=== PATIENT | female | born 1995 | race Caucasian/White ===

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

== ENCOUNTER 2017-01-01 04:27 | Emergency (ER) | payer MEDICAID ==
[~2017-01-01] VITALS: Ht 162.6 cm; Wt 88.0 kg
[~2017-01-01 04:27] MED LIST changes: -ADV25050 INH; +ADV25050 INHALATION; -ALBU8.5H3 INH; +AZIT250T6 PO; -BECL8.7A INH; -IPRA14.76; -IPRA14.76 IH; -LEVO500T72 PO; -LEVO750T25 PO; -LORA-52; -LORA10TA PO; +MED4DP PO; -MONT10TA21; -PRED-253; -PRED10TA PO; -PRED20TA PO
[2017-01-01 04:30] VITALS: Ht 162.6 cm; Wt 88.0 kg
[2017-01-01] MEDS ORDERED: LEVALBUTEROL (NEB) 1.25 MG/0.5 ML AMP INH STA ×2 (04:39→05:50)
[2017-01-01] MEDS ORDERED: METHYLPREDNISOLONE 125 MG INJ IM STA (04:39)
[2017-01-01] MEDS ORDERED: IPRATROPIUM (NEB) 0.5 MG/2.5 ML AMP NEB STA (04:39)
--- NOTE | 2017-01-01 05:01 | ERD ---
ER Documentation Chief Complaint Date/Time DATE: 01/01/17 TIME: 04:58 Chief Complaint coughx 3 days, sob today, wheezing HPI 21-year-old female presents here in emergency department for complaints of cough shortness breath and wheezing for 3 days, worse today. Patient has history of asthma, has been taking albuterol at home with only mild relief. Patient does not have any sick contacts. Patient denies any fever or chills. ROS All systems reviewed and are negative except as per history of present illness. Medications Home Meds Active Scripts Mometasone-Formoterol (Dulera) 100-5 Mcg - 13 Gm Hfa.aer.ad, 2 PUFFS INHALATION BID, #1 INHALER Prov:ELY ZAYAS NP 01/01/17 Prednisone* (Prednisone*) 50 Mg Tablet, 50 MG PO DAILY, #5 TAB Prov:ELY ZAYAS NP 01/01/17 Albuterol Sulfate* (Proair HFA*) 8.5 Gm Hfa.aer.ad, 2 PUFF INH Q4H Y for WHEEZING AND SOB, #1 INHALER Prov:ELY ZAYAS NP 01/01/17 Cetirizine Hcl* (Zyrtec*) 10 Mg Capsule, 10 MG PO DAILY, #30 TAB.CHEW Prov:ELY ZAYAS NP 01/01/17 Pebftjougso-B-Qurlsdkxlj Hb* (Guaifenesin* DM Syrup) 120 Ml Syrup, 10 ML PO Q4H Y for COUGH, #120 ML Prov:ELY ZAYAS NP 01/01/17 Methylprednisolone* (Medrol* DOSE PACK) 4 Mg/Dose-Pack Tab.ds.pk, 4 MG PO . DIRECTED, #1 PACKET Prov:CARRIE RICHTER 11/20/16 Azithromycin* (Azithromycin*) 250 Mg Tablet, 250 MG PO DAILY, #4 TAB Prov:REGIDORCARRIE 11/20/16 Salmeterol Xinaf/Fluticasone* (Advair*) 250-50 Diskus Inhaler, 2 INH INHALATION BID, #1 INHALER Prov:REGCARRIE PRECIADO 11/20/16 Albuterol Sulfate* (Albuterol Sulfate* Neb) 0.083%-3 Ml Neb, 2.5 MG NEB Q4 Y for SHORTNESS OF BREATH, #30 EA Prov:REGIDORCARRIE 11/20/16 Albuterol Sulfate* (Ventolin HFA*) 18 Gm Hfa.aer.ad, 2 PUFF INHALATION Q4H Y for WHEEZING AND SOB, #1 INHALER Prov:REGIDORNEETUCARRIE 11/20/16 Montelukast Sodium* (Singulair*) 10 Mg Tablet, 10 MG PO QHS, #30 TAB Prov:REGIDORNEETUCARRIE 11/20/16 Sodium Chloride for Inhalation (Nebusal for Inhalation) 4 Ml Vial.neb, 4 ML INHALATION Q4 for SHORTNESS OF BREATH, #1 EA Prov:JITENDRA VALENCIA NP 07/20/16 Allergies Allergies: Coded Allergies: No Known Allergy (Unverified , 07/18/16) PMhx/Soc History of Surgery: Yes (asthma since 7 years old) Anesthesia Reaction: No Hx Neurological Disorder: Yes (migraine) Hx Respiratory Disorders: Yes (asthma) Hx Cardiac Disorders: No Hx Psychiatric Problems: No Hx Miscellaneous Medical Probl: No Hx Alcohol Use: No Hx Substance Use: No Hx Tobacco Use: No Smoking Status: Never smoker FmHx Family History: No coronary disease, No diabetes, No other Physical Exam Vitals Vital Signs Date Time Temp Pulse Resp B/P Pulse Ox O2 Delivery O2 Flow Rate FiO2 01/01/17 07:06 126 127/66 100 01/01/17 06:10 103 26 95 21 01/01/17 04:50 117 32 93 21 01/01/17 04:30 97.8 124 20 138/72 97 Physical Exam GENERAL: The patient is well developed and appropriate for usual state of health, in no apparent distress. CHEST: Diffuse wheezing noted bilaterally. There are no rales, crackles or rhonchi. HEART: Regular rate and rhythm. No murmurs, clicks, rubs or gallops. No S3 or S4. ABDOMEN: Soft, nontender and nondistended. Good bowel sounds. No rebound or guarding. No gross peritonitis. No gross organomegaly or masses. No Ward sign or McBurney point tenderness. BACK: No midline or flank tenderness. EXTREMITIES: Equal pulses bilaterally. There is no peripheral clubbing, cyanosis or edema. No focal swelling or erythema. Full range of motion. Grossly neurovascularly intact. NEURO: Alert and oriented. Cranial nerves 2-12 intact. Motor strength in all 4 extremities with 5/5 strength. Sensation grossly intact. Normal speech and gait. SKIN: There is no apparent rash or petechia. The skin is warm and dry. HEMATOLOGIC AND LYMPHATIC: There is no evidence of excessive bruising or lymphedema. No gross cervical, axillary, or inguinal lymphadenopathy. Results 24 hrs Current Medications Medications (Trade) Dose Ordered Sig/Brady Route PRN Reason Start Time Stop Time Status Last Admin Dose Admin Ipratropium [place] (Atrovent 0.02% (Neb)) 1 mg ONCE STAT NEB 01/01/17 04:39 01/01/17 04:40 DC 01/01/17 04:50 Levalbuterol (Xopenex Neb) 5 mg ONCE STAT INH 01/01/17 04:39 01/01/17 04:40 DC 01/01/17 04:50 Methylprednisolone Sodium Succinate (Solu-Medrol) 125 mg ONCE STAT IM 01/01/17 04:39 01/01/17 04:40 DC 01/01/17 05:01 Levalbuterol (Xopenex Neb) 5 mg ONCE STAT INH 01/01/17 05:50 01/01/17 05:51 DC 01/01/17 06:11 Breathing treatment of Xopenex and Atrovent Solu Medrol IM was given here in emergency department, after treatment, patient's lungs sounds are clear and patient's oxygenation is better. Patient verbalized feeling much better. Procedures/MDM Medical Decision Making: Patient symptoms are most likely consistent with acute bronchitis w/ acute asthma exacerbation, which viral in origin. There is low suspicion for Pneumonia at this time since patients lungs sounds are clear , patient O2 saturation is normal and patient doesnt show any respiratory distress. Patients chest xray doesnt show infiltrates or any other cardiopulmonary emergencies at this time. There is low suspicion for other cardiopulmonary emergencies at this time such as CHF, Pulmonary Embolism, Pneumothorax, Aortic Aneurysm or any other cardiopulmonary emergencies at this time. There is low suspicion for sepsis. Patient appears well and is hemodynamically stable. Disposition: Home. Condition: Stable Prescriptions: ProAir, Prednisone, Dulera, Guaifenasin DM Instructions: Patient is advised to take medications as prescribed. Patient is advised to rest. Patient advised to increase fluid intake, do humidifier at home and if possible, do salt water gargles. Patient is advised that if symptoms are worse, shortness of breath, uncontrolled fever, stridor, vomiting, worst signs and symptoms to return to emergency department immediately. Otherwise, patient is advised to follow up with primary doctor in 5-7 days. Disclaimer: Inadvertent spelling and grammatical errors are likely due to EHR/ dictation software use and do not reflect on the overall quality of patient care. Also, please note that the electronic time recorded on this note does not necessarily reflect the actual time of the patient encounter. Departure Diagnosis: Primary Impression: Acute bronchitis Bronchitis organism: unspecified organism Qualified Code: J20.9 - Acute bronchitis, unspecified organism Additional Impression: Acute asthma exacerbation Asthma severity: unspecified severity Qualified Code: J45.901 - Asthma with acute exacerbation, unspecified asthma severity Condition: Stable Patient Instructions: Bronchitis With Wheezing (Adult) Additional Instructions: Patient is advised to take medications as prescribed. Patient is advised to rest. Patient advised to increase fluid intake, do humidifier at home and if possible, do salt water gargles. Patient is advised that if symptoms are worse, shortness of breath, uncontrolled fever, stridor, vomiting, worst signs and symptoms to return to emergency department immediately. Otherwise, patient is advised to follow up with primary doctor in 5-7 days. ELY ZAYAS NP Jan 01, 2017 05:01
[2017-01-01] MEDS ORDERED: GUAI120S26 PO (05:54)
[2017-01-01] MEDS ORDERED: PRED50TA PO (05:54)
[2017-01-01] MEDS ORDERED: MOME13HF2 INHALATION (05:54)
[2017-01-01] MEDS ORDERED: CETI10CA PO (05:54)
[2017-01-01] MEDS ORDERED: ALBU8.5H3 INH (05:54)
--- NOTE | 2017-01-01 06:10 | RADRPT ---
PROCEDURE: XR Chest. CLINICAL INDICATION: Asthma exacerbation TECHNIQUE: AP Portable chest. COMPARISON: 11/19/2016 FINDINGS: The cardiomediastinal silhouette is normal. The aorta is normal. No focal consolidation, pleural eff usion or pneumothorax is seen. The osseous structures are intact. IMPRESSION: No radiographic evidence of acute cardiopulmonary disease. Physician Kelley Date Time Electronically viewed and signed by Hussein Florez Physician on 01/01/2017 06:10 CS/
[2017-01-01 07:06] VITALS: BP 127/66; PULSE 126
== END 2017-01-01 07:43 | disposition home or self-care (01) ==
LOC: FTE 04:27
DX: J20.9 Acute bronchitis, unspecified (principal); J45.901 Unspecified asthma with (acute) exacerbation
CPT/HCPCS: 71010; 94644; 94645; 96372; J2930; Z7502; Z7610

== ENCOUNTER 2017-04-17 01:18 | Emergency (ER) | END 2017-04-17 04:52 | disposition home or self-care (01) ==

== ENCOUNTER 2017-11-25 08:07 | Emergency (ER) | END 2017-11-25 11:21 | disposition home or self-care (01) ==

== ENCOUNTER 2018-01-29 12:34 | Emergency (ER) | END 2018-01-29 16:25 | disposition home or self-care (01) ==

== ENCOUNTER 2018-02-19 10:10 | Emergency (ER) | END 2018-02-19 13:03 | disposition home or self-care (01) ==

== ENCOUNTER 2018-03-03 15:58 | Emergency (ER) | END 2018-03-03 19:27 | disposition home or self-care (01) ==

== ENCOUNTER 2018-05-30 09:13 | Inpatient (IN) | payer SELFPAY ==
[~2018-05-30] VITALS: Ht 157.5 cm; Wt 94.2 kg
[~2018-05-30 09:13] MED LIST changes: +ALBU8.5H8 INH; +AZIT250T PO; +AZIT250T13 PO; -AZIT250T6 PO; +CETI10CA PO; +GUAI120S26 PO; +IBUP-1542 PO; +LORA-186 PO; +MOME13HF2 INHALATION; +PRED20TA PO; +PRED50TA PO
[2018-05-30] MEDS ORDERED: ALBUTEROL 0.5% (NEB) 2.5 MG/0.5 ML AMP INH STA (09:19)
[2018-05-30] MEDS ORDERED: IPRATROPIUM (NEB) 0.5 MG/2.5 ML AMP INH STA (09:19)
[2018-05-30] MEDS ORDERED: SOD CHLORIDE 0.9% 1,000 ML IV STA (09:19)
[2018-05-30] MEDS ORDERED: METHYLPREDNISOLONE 125 MG INJ IV STA (09:19)
--- NOTE | 2018-05-30 09:39 | ERD ---
ER Documentation Chief Complaint Chief Complaint BIB [facility] FOR EVAL OF SOB HX OF ASTHMA. BREATHING TX BY EMS HPI 23-year-old woman brought in by EMS for shortness of breath and wheezing, she does have a history of asthma and has been using albuterol for the last few days without relief. She states she noticed the fever today, she has had a cough, sore throat, and congestion. Patient denies body aches, no recent travel or antibiotic use, no rash, no chest pain, no abdominal pain. Patient transported here on high flow oxygen and albuterol ROS All systems reviewed and are negative except as per history of present illness. Medications Home Meds Reported Medications Albuterol Sulfate* (Albuterol Sulfate* Neb) 0.083%-3 Ml Neb, 2.5 MG NEB Q4H PRN for WHEEZING AND SOB, #30 VIAL 05/30/18 Discontinued Scripts Prednisone* (Prednisone*) 50 Mg Tablet, 50 MG PO DAILY, #4 TAB Prov:SHANE DEL ANGEL PA-C 03/03/18 Albuterol Sulfate* (Proair HFA*) 8.5 Gm Hfa.aer.ad, 2 PUFF INH Q4, #1 INHALER Prov:SHANE DEL ANGEL PA-C 03/03/18 Albuterol Sulfate* (Albuterol Sulfate* Neb) 0.083%-3 Ml Neb, 2.5 MG NEB Q4 PRN for SHORTNESS OF BREATH, #30 EA Prov:SARAHY MUNOZ PA-C 02/19/18 Albuterol Sulfate* (Ventolin HFA*) 18 Gm Hfa.aer.ad, 2 PUFF INHALATION Q4H, #1 INHALER Prov:SARAHY MUNOZ PA-C 02/19/18 Albuterol Sulfate* (Proair HFA*) 8.5 Gm Hfa.aer.ad, 2 PUFF INH Q4, #1 INHALER Prov:JOSHUA ARTEAGA PA-C 01/29/18 Prednisone* (Prednisone*) 20 Mg Tab, 40 MG PO DAILY for 4 Days, TAB Prov:JOSHUA ARTEAGA PA-C 01/29/18 Salmeterol Xinaf/Fluticasone* (Advair*) 250-50 Diskus Inhaler, 1 INH INHALATION BID, #1 INHALER Prov:BRICE RUFFIN 12/09/17 Montelukast Sodium* (Singulair*) 10 Mg Tablet, 10 MG PO QHS, #30 TAB Prov:LALY,BRICE 12/09/17 Loratadine* (Claritin*) 10 Mg Tablet, 10 MG PO DAILY, #30 TAB Prov:LALY,BRICE 12/09/17 Albuterol Sulfate* (Albuterol Sulfate* Neb) 0.083%-3 Ml Neb, 2.5 MG NEB Q4 PRN for SHORTNESS OF BREATH, #30 EA Prov:LALY,BRICE 12/09/17 Prednisone* (Prednisone*) 20 Mg Tab, 40 MG PO DAILY for 4 Days, TAB Prov:LALY,BRICE 12/09/17 Prednisone* (Prednisone*) 20 Mg Tab, 40 MG PO DAILY for 4 Days, TAB Prov:KHUSHBU SNELL MD 11/25/17 Albuterol Sulfate* (Proair HFA*) 8.5 Gm Hfa.aer.ad, 2 PUFF INH Q4, #1 INHALER Prov:KHUSHBU SNELL MD 11/25/17 Azithromycin* (Zithromax*) 250 Mg Tablet, 250 MG PO .ZPACK DIRECTED, #6 TAB TAKE 500 MG (2 TABS) THE FIRST DAY THEN 250 MG (1 TAB) DAYS 2-5 Prov:KHUSHBU SNELL MD 11/25/17 Prednisone* (Prednisone*) 50 Mg Tablet, 50 MG PO DAILY for 5 Days, TAB Prov:ELY ZAYAS NP 04/17/17 Ibuprofen* (Motrin*) 600 Mg Tab, 600 MG PO Q6H PRN for PAIN AND OR ELEVATED TEMP, #30 TAB Prov:ELY ZAYAS NP 04/17/17 Cetirizine Hcl* (Zyrtec*) 10 Mg Capsule, 10 MG PO DAILY, #30 TAB.CHEW Prov:ELY ZAYAS NP 04/17/17 Eurvkkhnmzj-D-Vqydjfrxot Hb* (Guaifenesin* DM Syrup) 120 Ml Syrup, 10 ML PO Q4H PRN for COUGH, #120 ML Prov:ELY ZAYAS NP 04/17/17 Albuterol Sulfate* (Proair HFA*) 8.5 Gm Hfa.aer.ad, 2 PUFF INH Q4H PRN for WHEEZING AND SOB, #1 INHALER Prov:ELY ZAYAS NP 04/17/17 Mometasone-Formoterol (Dulera) 100-5 Mcg - 13 Gm Hfa.aer.ad, 2 PUFFS INHALATION BID, #1 INHALER Prov:ELY ZAYAS [employer]ING [employer] SUPERVISOR 01/01/17 Prednisone* (Prednisone*) 50 Mg Tablet, 50 MG PO DAILY, #5 TAB Prov:ELY ZAYAS NP 01/01/17 Albuterol Sulfate* (Proair HFA*) 8.5 Gm Hfa.aer.ad, 2 PUFF INH Q4H PRN for WHEEZING AND SOB, #1 INHALER Prov:EYL ZAYAS NP 01/01/17 Cetirizine Hcl* (Zyrtec*) 10 Mg Capsule, 10 MG PO DAILY, #30 TAB.CHEW Prov:ELY ZAYAS NP 01/01/17 Cpjtesatazf-Q-Ydqknyahpj Hb* (Guaifenesin* DM Syrup) 120 Ml Syrup, 10 ML PO Q4H PRN for COUGH, #120 ML Prov:ELY ZAYAS NP 01/01/17 Methylprednisolone* (Medrol* DOSE PACK) 4 Mg/Dose-Pack Tab.ds.pk, 4 MG PO . DIRECTED, #1 PACKET Prov:CARRIE RICHTER 11/20/16 Azithromycin* (Azithromycin*) 250 Mg Tablet, 250 MG PO DAILY, #4 TAB Prov:CARRIE RICHTER 11/20/16 Salmeterol Xinaf/Fluticasone* (Advair*) 250-50 Diskus Inhaler, 2 INH INHALATION BID, #1 INHALER Prov:CARRIE RICHTER 11/20/16 Albuterol Sulfate* (Albuterol Sulfate* Neb) 0.083%-3 Ml Neb, 2.5 MG NEB Q4 PRN for SHORTNESS OF BREATH, #30 EA Prov:CARRIE RICHTER 11/20/16 Albuterol Sulfate* (Ventolin HFA*) 18 Gm Hfa.aer.ad, 2 PUFF INHALATION Q4H PRN for WHEEZING AND SOB, #1 INHALER Prov:CARRIE RICHTER 11/20/16 Montelukast Sodium* (Singulair*) 10 Mg Tablet, 10 MG PO QHS, #30 TAB Prov:CARRIE RICHTER 11/20/16 Sodium Chloride for Inhalation (Nebusal for Inhalation) 4 Ml Vial.neb, 4 ML INHALATION Q4 for SHORTNESS OF BREATH, #1 EA Prov:JITENDRA VALENCIA P[employer]ING [employer] SUPERVISOR 07/20/16 Allergies Allergies: Coded Allergies: No Known Allergy (Unverified , 05/30/18) PMhx/Soc Asthma History of Surgery: No Anesthesia Reaction: No Hx Neurological Disorder: Yes (migraine) Hx Respiratory Disorders: Yes (asthma) Hx Cardiac Disorders: No Hx Psychiatric Problems: No Hx Miscellaneous Medical Probl: No Hx Alcohol Use: No Hx Substance Use: No Hx Tobacco Use: No Smoking Status: Never smoker FmHx Family History: No diabetes Physical Exam Vitals Vital Signs Date Temp Pulse Resp B/P (MAP) Pulse Ox O2 O2 Flow FiO2 Time Delivery Rate 05/30/18 126 18 137/78 94 Nasal 12:29 (97) Cannula 05/30/18 130 19 96 Nasal 2.0 09:33 Cannula 05/30/18 2.0 09:33 05/30/18 Nasal 2 09:22 Cannula 05/30/18 Nasal 2.0 09:17 Cannula 05/30/18 101.4 145 22 130/76 97 09:15 (94) Physical Exam GENERAL: Well-developed, well-nourished, dyspneic, febrile HEENT: Moist mucous membranes, pink conjunctiva, no cervical spine tenderness or step-off deformities, no goiter, no jaundice or icterus, extraocular movements intact without pain. No submandibular induration, and no pharyngeal erythema NEURO: Alert and oriented 3, cranial nerves II through XII intact bilaterally, pupils equal round reactive to light, no focal deficits or facial asymmetry, se nsation intact distally Strength 5/5 in upper and lower extremities bilaterally CARDIAC: Tachycardic and regular, no murmurs rubs or gallops LUNGS: Tachypnea, wheezing, no crackles or stridor SKIN: Warm and dry to touch, no abrasions, contusions, or hematomas, no lacerations, no ecchymosis, no target lesions, and without ulcers EXTREMITIES: No clubbing cyanosis or edema, calves are bilaterally symmetrical, no Homans sign, no popliteal cord sign. Distal pulses equal and bilateral PSYCH: Normal affect without agitation or irritability Result Diagram: 05/30/1848 05/30/18 0948 Results 24 hrs Laboratory Tests Test 05/30/18 09:48 05/30/18 11:30 05/30/18 11:40 White Blood Count 15.9 10^3/ul Red Blood Count 4.97 10^6/ul Hemoglobin 12.6 g/dl Hematocrit 39.3 % Mean Corpuscular Volume 79.1 fl Mean Corpuscular Hemoglobin 25.4 pg Mean Corpuscular 32.1 g/dl Hemoglobin Concent Red Cell Distribution Width 15.4 % Platelet Count 344 10^3/UL Mean Platelet Volume 8.6 fl Immature Granulocytes % 0.600 % Neutrophils % 75.5 % Lymphocytes % 15.4 % Monocytes % 6.4 % Eosinophils % 1.7 % Basophils % 0.4 % Nucleated Red Blood Cells % 0.0 /100WBC Immature Granulocytes # 0.100 10^3/ul Neutrophils # 12.0 10^3/ul Lymphocytes # 2.5 10^3/ul Monocytes # 1.0 10^3/ul Eosinophils # 0.3 10^3/ul Basophils # 0.1 10^3/ul Nucleated Red Blood Cells # 0.0 10^3/ul Sodium Level 143 mmol/L Potassium Level 3.7 mmol/L Chloride Level 105 mmol/L Carbon Dioxide Level 23 mmol/L Anion Gap 15 Blood Urea Nitrogen 8 mg/dl Creatinine 0.61 mg/dl Est Glomerular Filtrat > 60 mL/min Rate mL/min Glucose Level 119 mg/dl Calcium Level 9.4 mg/dl Total Bilirubin 0.3 mg/dl Direct Bilirubin 0.00 mg/dl Indirect Bilirubin 0.3 mg/dl Aspartate Amino 21 IU/L Transf (AST/SGOT) Alanine 17 IU/L Aminotransferase (ALT/SGPT) Alkaline Phosphatase 82 IU/L Troponin I < 0.012 ng/ml Total Protein 8.0 g/dl Albumin 4.8 g/dl Globulin 3.20 g/dl Albumin/Globulin Ratio 1.50 Lipase 58 U/L Urine Color YELLOW Urine Clarity CLOUDY Urine pH 6.0 Urine Specific [place] 1.030 Urine Ketones 2+ mg/dL Urine Nitrite NEGATIVE mg/dL Urine Bilirubin NEGATIVE mg/dL Urine Urobilinogen NEGATIVE mg/dL Urine Leukocyte Esterase TRACE Effie/ul Urine Microscopic RBC 6 /HPF Urine Microscopic WBC 10 /HPF Urine Squamous Epithelial Cells MODERATE /HPF Urine Bacteria FEW /HPF Urine Mucus MANY /HPF Urine Hemoglobin NEGATIVE mg/dL Urine Glucose NEGATIVE mg/dL Urine Total Protein 1+ mg/dl Urine Test NEGATIVE POC Beta HCG, Qualitative NEGATIVE Current Medications Medications Dose Sig/Brady Start Time Status Last (Trade) Ordered Route PRN Stop Time Admin Dose Reason Admin Albuterol 10 mg ONCE STAT 05/30/18 DC 05/30/18 (Proventil INH 09: 09:32 0.5% (Neb)) 05/30/18 09:22 Ipratropium 1 mg ONCE STAT 05/30/18 DC 05/30/18 [place] INH : 09:32 (Atrovent 05/30/18 09:22 0.02% (Neb)) 125 mg ONCE STAT 05/30/18 DC 05/30/18 Methylprednis IV 09:19 09:25 olone Sodium 05/30/18 09:22 Succinate (Solu-Medrol) Sodium 1,000 ml @ Q1H STAT 05/30/18 DC 05/30/18 Chloride 1,000 mls/hr IV 09:19 09:25 05/30/18 10:18 Magnesium 50 ml @ 25 ONCE ONCE 05/30/18 DC 05/30/18 Sulfate mls/hr IVPB 10:00 09:49 05/30/18 11:59 Procedures/MDM IV line was established patient was placed on quality assurance monitor chassis rhythm strip revealed a sinus tachycardia at 141 bpm with upright P and T waves. Patient was febrile. I do not think she has sepsis and suspect her tachycardia is due to the overall dehydration and albuterol that she has been receiving prior to arrival. EKG performed, read by me revealed a sinus tachycardia at 142 bpm, normal axis, narrow QRS complex, no concerning ST elevations or depressions noted, prolonged QT of 541 ms Chest X-ray 1V Interpreted by me: Soft Tissue: No acute abnormalities Bones: No acute abnormalities Mediastinum/Cardiac Silhouette/Lungs: No acute abnormalities I administered 1 L normal saline IV, albuterol 10 mg via nebulizer, ipratropium 1 mg via nebulizer, methylprednisolone 125 mg IV x1. I also administered magnesium 2 g IV x1. Repeat EKG revealed a sinus tachycardia at 130 bpm with prolonged QT of 579 ms essentially unchanged EKG. CBC reveals a leukocytosis of 16, electrolytes are normal, liver function tests normal, troponin negative, urinalysis reveals leukocytes and elevated urine WBCs so I treated her here with ceftriaxone 1 g IV. Influenza swabs were negative Patient has continued dyspnea and wheezing despite above management, she will be admitted for continued bronchodilator therapy Departure Diagnosis: Primary Impression: Asthma Asthma severity: moderate Asthma persistence: persistent Asthma complication type: with acute exacerbation Qualified Codes: J45.41 - Moderate persistent asthma with (acute) exacerbation Additional Impressions: Acute URI Acute UTI Condition: GUY Akbar MD May 30, 2018 09:39
[2018-05-30] MEDS ORDERED: MAGNESIUM SULFATE 2 GM/50 ML 50 ML IVPB ONE (10:00)
[2018-05-30] MEDS ORDERED: ALBU2.5V3 NEB (10:38)
[2018-05-30] MEDS ORDERED: CEFTRIAXONE 1 GM/50 ML (PMX) 50 ML IVPB ONE (13:00)
[2018-05-30 14:13] VITALS: BP 125/68; PULSE 119; RESP 18
[2018-05-30 14:41] VITALS: PULSE 102
[2018-05-30 14:47] VITALS: Ht 157.5 cm; Wt 94.2 kg
[2018-05-30] MEDS ORDERED: ACETAMINOPHEN 325 MG TAB PO PRN (15:30)
[2018-05-30] MEDS: ALBUTEROL 0.083% (NEB) 2.5 MG/3 ML AMP HHN SCH ×3 (15:30→19:49)
[2018-05-30] MEDS ORDERED: ONDANSETRON 4 MG INJ IV PRN (15:30)
--- NOTE | 2018-05-30 15:56 | HP ---
DATE OF ADMISSION: 05/30/2018 PRESENTING COMPLAINT: Shortness of breath and wheezing. HISTORY OF PRESENTING COMPLAINT: Lucia is a 23-year-old female who has been asthmatic since she was 7 and has been hospitalized a few times with acute asthma exacerbation. Over the last few days, she has been having mild shortness of breath, sore throat, cough, congestion, but today she was out with her family when she suddenly developed severe chest discomfort more like a tightness and inability to breathe. She tried to use her home albuterol with no relief and her family called 911 to bring her to the emergency room. At this time, she is improved after breathing treatments and intravenous Solu-Medrol as well as magnesium therapy. However, she continues to wheeze and still has some shortness of breath and so she is being admitted for further management. PAST MEDICAL HISTORY: Positive for asthma and migraines. PAST SURGICAL HISTORY: The patient denies. ALLERGIES: SHE HAS NO KNOWN DRUG ALLERGIES. SOCIAL HISTORY: Denies tobacco, alcohol or illicit drugs. FAMILY HISTORY: Positive for hypertension. REVIEW OF SYSTEMS: A 12-point review of system was done and pertinent findings as noted in the HPI. PHYSICAL EXAMINATION: VITAL SIGNS: Temperature 98.9, pulse is 102, respirations 18, blood pressure 135/68, saturations 92% on oxygen via nasal cannula at 2 liters a minute. GENERAL: Very sick, obese. She is alert. She is oriented. She is speaking in full sentences. HEENT: Head is normocephalic with equal, round and reactive pupils. Mucous membranes are moist. Posterior pharynx is clear of erythema and exudate. NECK: Supple without adenopathy. CHEST: Still with diminished breath sounds bilaterally and expiratory wheezes especially in the bases on both sides. CARDIOVASCULAR: Heart sounds are S1 and S2 without added sounds or murmurs. She is tachycardic likely from albuterol use. ABDOMEN: Obese, soft, nontender, nondistended. Normoactive bowel sounds. EXTREMITIES: There is no lower extremity edema. SKIN: Devoid of rash or jaundice. LABORATORY VALUES: CMP is unremarkable. CBC does show a leukocytosis of 15,000 and mild hypochromasia. Urinalysis is suggestive of urinary tract infection, but the patient is asymptomatic. ASSESSMENT: A 23-year-old female with: 1. Acute asthma exacerbation. 2. Reactive leukocytosis. 3. Upper respiratory infection, likely viral that she got the asthma exacerbation. PLAN: Admit her for continued scheduled bronchodilator therapy. She is status post 1 dose of intravenous steroids as well as 1 dose of IV antibiotic in the ER and she also received magnesium infusion. So for now, I am going to just continue with scheduled breathing treatments and see how she does. If necessary, we will resume steroids but I do not think that is indicated at this time. Further interventions will depend on her overall clinical course. Plan of care has been discussed with her in detail. Questions have been answered. Dictated By: LAVELLE URIOSTEGUI MD BA/NTS Conf#: [id number] DID#: [id number] MTDD
[2018-05-30 20:17] VITALS: BP 137/70; PULSE 110; RESP 17
[2018-05-30 20:30] VITALS: PULSE 89
[2018-05-31] MEDS: ALBUTEROL 0.083% (NEB) 2.5 MG/3 ML AMP HHN SCH ×4 (00:20→13:02)
[2018-05-31 02:05] VITALS: BP 106/56; PULSE 97; RESP 16
[2018-05-31 02:30] VITALS: PULSE 85
[2018-05-31 07:50] VITALS: BP 115/62; PULSE 67; RESP 18
--- NOTE | 2018-05-31 12:53 | DS ---
Date/Time of Note Date/Time of Note DATE: 05/31/18 TIME: 12:53 Discharge Summary Admission/Discharge Info Admit Date/Time May 30, 2018 at 11:09 Discharge Date/Time Patient Condition: Stable Home Meds Reported Medications Albuterol Sulfate* (Albuterol Sulfate* Neb) 0.083%-3 Ml Neb, 2.5 MG NEB Q4H PRN for WHEEZING AND SOB, #30 VIAL 05/30/18 Discontinued Scripts Prednisone* (Prednisone*) 50 Mg Tablet, 50 MG PO DAILY, #4 TAB Prov:SHANE DEL ANGEL PA-C 03/03/18 Albuterol Sulfate* (Proair HFA*) 8.5 Gm Hfa.aer.ad, 2 PUFF INH Q4, #1 INHALER Prov:SHANE DEL ANGEL PA-C 03/03/18 Albuterol Sulfate* (Albuterol Sulfate* Neb) 0.083%-3 Ml Neb, 2.5 MG NEB Q4 PRN for SHORTNESS OF BREATH, #30 EA Prov:SARAHY MUNOZ PA-C 02/19/18 Albuterol Sulfate* (Ventolin HFA*) 18 Gm Hfa.aer.ad, 2 PUFF INHALATION Q4H, #1 INHALER Prov:SARAHY MUNOZ PA-C 02/19/18 Albuterol Sulfate* (Proair HFA*) 8.5 Gm Hfa.aer.ad, 2 PUFF INH Q4, #1 INHALER Prov:JOSHUA ARTEAGA PA-C 01/29/18 Prednisone* (Prednisone*) 20 Mg Tab, 40 MG PO DAILY for 4 Days, TAB Prov:JOSHUA ARTEAGA PA-C 01/29/18 Salmeterol Xinaf/Fluticasone* (Advair*) 250-50 Diskus Inhaler, 1 INH INHALATION BID, #1 INHALER Prov:LALY,BRICE 12/09/17 Montelukast Sodium* (Singulair*) 10 Mg Tablet, 10 MG PO QHS, #30 TAB Prov:LALY,BRICE 12/09/17 Loratadine* (Claritin*) 10 Mg Tablet, 10 MG PO DAILY, #30 TAB Prov:LALY,BRICE 12/09/17 Albuterol Sulfate* (Albuterol Sulfate* Neb) 0.083%-3 Ml Neb, 2.5 MG NEB Q4 PRN for SHORTNESS OF BREATH, #30 EA Prov:LALY,BRICE 12/09/17 Prednisone* (Prednisone*) 20 Mg Tab, 40 MG PO DAILY for 4 Days, TAB Prov:LALY,BRICE 12/09/17 Prednisone* (Prednisone*) 20 Mg Tab, 40 MG PO DAILY for 4 Days, TAB Prov:KHUSHBU SNELL MD 11/25/17 Albuterol Sulfate* (Proair HFA*) 8.5 Gm Hfa.aer.ad, 2 PUFF INH Q4, #1 INHALER Prov:KHUSHBU SNELL MD 11/25/17 Azithromycin* (Zithromax*) 250 Mg Tablet, 250 MG PO .ZPACK DIRECTED, #6 TAB TAKE 500 MG (2 TABS) THE FIRST DAY THEN 250 MG (1 TAB) DAYS 2-5 Prov:KHUSHBU SNELL MD 11/25/17 Prednisone* (Prednisone*) 50 Mg Tablet, 50 MG PO DAILY for 5 Days, TAB Prov:ELY ZAYAS NP 04/17/17 Ibuprofen* (Motrin*) 600 Mg Tab, 600 MG PO Q6H PRN for PAIN AND OR ELEVATED TEMP, #30 TAB Prov:ELY ZAYAS NP 04/17/17 Cetirizine Hcl* (Zyrtec*) 10 Mg Capsule, 10 MG PO DAILY, #30 TAB.CHEW Prov:ELY ZAYAS NP 04/17/17 Rjocuggbxzr-O-Iohegiguah Hb* (Guaifenesin* DM Syrup) 120 Ml Syrup, 10 ML PO Q4H PRN for COUGH, #120 ML Prov:ELY ZAYAS NP 04/17/17 Albuterol Sulfate* (Proair HFA*) 8.5 Gm Hfa.aer.ad, 2 PUFF INH Q4H PRN for WHEEZING AND SOB, #1 INHALER Prov:ELY ZAYAS NP 04/17/17 Mometasone-Formoterol (Dulera) 100-5 Mcg - 13 Gm Hfa.aer.ad, 2 PUFFS INHALATION BID, #1 INHALER Prov:ELY ZAYAS NP 01/01/17 Prednisone* (Prednisone*) 50 Mg Tablet, 50 MG PO DAILY, #5 TAB Prov:ELY ZAYAS NP 01/01/17 Albuterol Sulfate* (Proair HFA*) 8.5 Gm Hfa.aer.ad, 2 PUFF INH Q4H PRN for WHEEZING AND SOB, #1 INHALER Prov:ELY ZAYAS NP 01/01/17 Cetirizine Hcl* (Zyrtec*) 10 Mg Capsule, 10 MG PO DAILY, #30 TAB.CHEW Prov:ELY ZAYAS NP 01/01/17 Yxzzkedmpgo-H-Kjpjxxzbal Hb* (Guaifenesin* DM Syrup) 120 Ml Syrup, 10 ML PO Q4H PRN for COUGH, #120 ML Prov:ELY ZAYAS NP 01/01/17 Methylprednisolone* (Medrol* DOSE PACK) 4 Mg/Dose-Pack Tab.ds.pk, 4 MG PO . DIRECTED, #1 PACKET Prov:CARRIE RICHTER 11/20/16 Azithromycin* (Azithromycin*) 250 Mg Tablet, 250 MG PO DAILY, #4 TAB Prov:CARRIE RICHTER 11/20/16 Salmeterol Xinaf/Fluticasone* (Advair*) 250-50 Diskus Inhaler, 2 INH INHALATION BID, #1 INHALER Prov:CARRIE RICHTER 11/20/16 Albuterol Sulfate* (Albuterol Sulfate* Neb) 0.083%-3 Ml Neb, 2.5 MG NEB Q4 PRN for SHORTNESS OF BREATH, #30 EA Prov:REGCARRIE PRECIADO 11/20/16 Albuterol Sulfate* (Ventolin HFA*) 18 Gm Hfa.aer.ad, 2 PUFF INHALATION Q4H PRN for WHEEZING AND SOB, #1 INHALER Prov:CARRIE RICHTER 11/20/16 Montelukast Sodium* (Singulair*) 10 Mg Tablet, 10 MG PO QHS, #30 TAB Prov:CARRIE RICHTER 11/20/16 Sodium Chloride for Inhalation (Nebusal for Inhalation) 4 Ml Vial.neb, 4 ML INHALATION Q4 for SHORTNESS OF BREATH, #1 EA Prov:JITENDRA VALENCIA HEAD [employer]IECE ASSEMBLER 07/20/16 Primary Care Provider Not On Staff Doctor Time spent on discharge: < 30 minutes Pending Labs Laboratory Tests Test 05/31/18 06:47 White Blood Count 10.6 10^3/ul (4.8-10.8) Red Blood Count 4.92 10^6/ul (4.20-5.40) Hemoglobin 12.3 g/dl (12.0-16.0) Hematocrit 38.7 % (37.0-47.0) Mean Corpuscular Volume 78.7 fl (82.0-101.0) Mean Corpuscular Hemoglobin 25.0 pg (29.0-33.0) Mean Corpuscular Hemoglobin Concent 31.8 g/dl (32.0-37.0) Red Cell Distribution Width 15.9 % (11.5-14.5) Platelet Count 351 10^3/UL (140-415) Mean Platelet Volume 9.1 fl (7.4-10.4) Immature Granulocytes % 0.600 % (0.001-0.429) Neutrophils % 68.8 % (39.0-77.0) Lymphocytes % 20.6 % (15.0-51.0) Monocytes % 9.2 % (0.0-11.0) Eosinophils % 0.4 % (0.0-7.0) Basophils % 0.4 % (0.0-2.0) Nucleated Red Blood Cells % 0.0 /100WBC (0.0-0.0) Immature Granulocytes # 0.060 10^3/ul (0.0-0.031) Neutrophils # 7.3 10^3/ul (1.6-7.5) Lymphocytes # 2.2 10^3/ul (0.8-2.9) Monocytes # 1.0 10^3/ul (0.3-0.9) Eosinophils # 0.0 10^3/ul (0.0-0.5) Basophils # 0.0 10^3/ul (0.0-0.1) Nucleated Red Blood Cells # 0.0 10^3/ul (0.0-0.0) Sodium Level 143 mmol/L (135-144) Potassium Level 4.1 mmol/L (3.5-5.1) Chloride Level 107 mmol/L (97-110) Carbon Dioxide Level 22 mmol/L (21-31) Anion Gap 14 (5-13) Blood Urea Nitrogen 11 mg/dl (7-20) Creatinine 0.56 mg/dl (0.44-1.00) Est Glomerular Filtrat Rate mL/min > 60 mL/min (>60) Glucose Level 92 mg/dl (70-220) Hemoglobin A1c 5.3 % (0-5.9) Calcium Level 9.2 mg/dl (8.4-10.2) Magnesium Level 2.5 mg/dl (1.7-2.5) LAVELLE URIOSTEGUI May 31, 2018 12:53
[2018-05-31] MEDS ORDERED: MONT10TA21 PO (12:55)
[2018-05-31] MEDS ORDERED: MED4DP PO (12:55)
[2018-05-31] MEDS ORDERED: ALBU2.5V3 HHN (12:55)
[2018-05-31] MEDS ORDERED: METHYLPREDNISOLONE 125 MG INJ IV ONE (13:00)
[2018-05-31 14:10] VITALS: BP 126/65; PULSE 106; RESP 18
== END 2018-05-31 14:55 | disposition home or self-care (01) | DRG 203 ==
LOC: E/R 09:13 → 2NE 11:09 → CANRESERV 12:15
PROVIDERS: ADMIT Family Medicine; ATTEND Family Medicine
DX: J45.901 Unspecified asthma with (acute) exacerbation (principal); D72.829 Elevated white blood cell count, unspecified; J06.9 Acute upper respiratory infection, unspecified
CPT/HCPCS: 36415; 71045; 80048; 80053; 81001; 81025; 83036; 83690; 83735; 84484; 84703; 85025; 87400; 93005; 94640; 94644; 94664; 96374; 96375; J0696; J2930; J3475; J7030